=== PATIENT | female | born 1985 | race Caucasian/White ===

== ENCOUNTER 2021-06-22 07:19 | Outpatient (CLI) | payer OTHER ==
[~2021-06-22 07:19] MED LIST: KETO10TA2 PO
== END 2021-06-22 08:06 | disposition home or self-care (01) ==
LOC: NST 07:19
PROVIDERS: ATTEND Obstetrics & Gynecology Maternal & Fetal Medicine
DX: Z34.83 Encounter for supervision of other normal pregnancy, third trimester (principal)

== ENCOUNTER 2021-06-30 08:58 | Outpatient (CLI) | payer OTHER | END 2021-06-30 09:25 | disposition home or self-care (01) | LOC: NST 08:58 | PROVIDERS: ATTEND Obstetrics & Gynecology Maternal & Fetal Medicine | DX: Z34.83 Encounter for supervision of other normal pregnancy, third trimester (principal) ==

== ENCOUNTER 2021-07-05 10:05 | Outpatient (CLI) | payer OTHER | END 2021-07-05 11:22 | disposition home or self-care (01) | LOC: NST 10:05 | PROVIDERS: ATTEND Obstetrics & Gynecology Maternal & Fetal Medicine | DX: Z34.83 Encounter for supervision of other normal pregnancy, third trimester (principal) ==

== ENCOUNTER → 2021-07-07 | Outpatient (CLI) | payer OTHER | END | disposition home or self-care (01) | LOC: NST 09:02 | PROVIDERS: ATTEND Obstetrics & Gynecology Maternal & Fetal Medicine | DX: O48.0 Post-term pregnancy (principal) ==

== ENCOUNTER 2021-07-09 09:15 | Outpatient (CLI) | payer OTHER | END 2021-07-09 10:36 | disposition home or self-care (01) | LOC: NST 09:15 | PROVIDERS: ATTEND Obstetrics & Gynecology Maternal & Fetal Medicine | DX: Z34.83 Encounter for supervision of other normal pregnancy, third trimester (principal) ==

== ENCOUNTER 2021-07-10 12:56 | Outpatient (CLI) | payer OTHER | END 2021-07-10 13:44 | disposition home or self-care (01) | LOC: NST 12:56 | PROVIDERS: ATTEND Obstetrics & Gynecology Maternal & Fetal Medicine | DX: Z34.83 Encounter for supervision of other normal pregnancy, third trimester (principal) ==